=== PATIENT | female | born 1970 | race Caucasian/White ===

== ENCOUNTER 2016-08-07 13:44 | Emergency (ER) | payer SELFPAY ==
[2016-08-07 15:05] LABS: HEMOGLOBIN 14.1 gm/dl (12.3-15.3); RED BLOOD COUNT 4.94 M/UL (4.00-5.10)
[2016-08-07 15:09] LABS: BUN/CREATININE RATIO 26 (0-10)
== END 2016-08-07 17:25 | disposition home or self-care (01) ==
LOC: ER1 13:44
PROVIDERS: Emergency Medicine
DX: R10.9 Unspecified abdominal pain (principal); R11.2 Nausea with vomiting, unspecified; N85.8 Other specified noninflammatory disorders of uterus
CPT/HCPCS: 36415; 80053; 83690; 85025; 96361; 96372; 96374; 96375; 99284; J1630; J2270; J2405

== ENCOUNTER 2016-08-10 08:52 | Day surgery (SDC) | payer SELFPAY ==
[~2016-08-10] VITALS: Ht 162.6 cm; Wt 73.5 kg
[2016-08-10 09:38] LABS: HEMOGLOBIN 14.8 gm/dl (12.3-15.3); RED BLOOD COUNT 5.2 M/UL (4.00-5.10); WHITE BLOOD COUNT 12.1 K/UL (4.5-11.0)
[2016-08-10] MEDS ORDERED: LISINOPRIL20 MG PO (09:47)
[2016-08-11 05:21] LABS: HEMOGLOBIN 11.6 gm/dl (12.3-15.3)
[2016-08-11] MEDS ORDERED: IBUPROFEN600 MG PO (13:05)
[2016-08-11] MEDS ORDERED: PERCOCET 10-321 EACH PO (13:05)
[2016-08-11] MEDS ORDERED: COLACE 100MG C100 MG PO (13:06)
== END 2016-08-11 15:06 | disposition home or self-care (01) ==
LOC: OR 08:52 → M/S 08:52 → OR 09:00 → M/S 16:15 → OR 08-11 15:06
PROVIDERS: Obstetrics & Gynecology
PROC: 0UT20ZZ Resection of Bilateral Ovaries, Open Approach (ICD-10-PCS; 2016-08-10)
PROC: 0UT70ZZ Resection of Bilateral Fallopian Tubes, Open Approach (ICD-10-PCS; 2016-08-10)
PROC: 0UT90ZZ Resection of Uterus, Open Approach (ICD-10-PCS; principal; 2016-08-10 09:00)
PROC: 0UTC0ZZ Resection of Cervix, Open Approach (ICD-10-PCS; 2016-08-10 09:00)
DX: D06.9 Carcinoma in situ of cervix, unspecified (principal); D27.1 Benign neoplasm of left ovary; N83.512 Torsion of left ovary and ovarian pedicle; I10 Essential (primary) hypertension; F17.210 Nicotine dependence, cigarettes, uncomplicated; Z53.31 Laparoscopic surgical procedure converted to open procedure; Z83.3 Family history of diabetes mellitus; Z82.49 Family history of ischemic heart disease and other diseases of the circulatory system; Z79.899 Other long term (current) drug therapy; Z98.51 Tubal ligation status
CPT/HCPCS: 36415; 81001; 85014; 85018; 85025; J0690; J1885; J2250; J2405; J2710; J2765; J2795; J3010; J7120